=== PATIENT | female | born 1985 | race Caucasian/White ===

== ENCOUNTER 2017-10-27 10:02 | Emergency (ER) | payer OTHER ==
[~2017-10-27] VITALS: Ht 175.3 cm; Wt 144.2 kg
--- NOTE | 2017-10-27 10:14 | PHYS DOC ---
Adult General Chief Complaint Chief Complaint: SORE THROAT HPI HPI 32-year-old female patient with history of smoking complaining of sore throat for the last 2 days as a moderate pain that getting worse with swallowing. Patient denies fever and chills, nasal congestion, cough and earache, sick contact, history of frequent sore throat. Patient has history of tonsillectomy. Review of Systems Review of Systems Constitutional: Denies fever or chills [] Eyes: Denies change in visual acuity, redness, or eye pain [] HENT: Denies nasal congestion, reports sore throat Respiratory: Denies cough or shortness of breath [] Cardiovascular: No additional information not addressed in HPI [] GI: Denies abdominal pain, nausea, vomiting, bloody stools or diarrhea [] : Denies dysuria or hematuria [] Musculoskeletal: Denies back pain or joint pain [] Integument: Denies rash or skin lesions [] Neurologic: Denies headache, focal weakness or sensory changes [] Endocrine: Denies polyuria or polydipsia [] All other systems were reviewed and found to be within normal limits, except as documented in this note. Physical Exam Physical Exam Constitutional: Well developed, well nourished, mild distress, non-toxic appearance. [] HENT: Normocephalic, atraumatic, bilateral external ears normal, oropharynx moist with mild erythema, no oral exudates, nose normal. [] Eyes: PERRLA, EOMI, conjunctiva normal, no discharge. [] Neck: Normal range of motion, no tenderness, supple, no stridor. [] Cardiovascular:Heart rate regular rhythm, no murmur [] Lungs & Thorax: Bilateral breath sounds clear to auscultation [] Neurologic: Alert and oriented X 3, normal motor function, normal sensory function, no focal deficits noted. [] Psychologic: Affect normal, judgement normal, mood normal. [] EKG EKG [] Radiology/Procedures Radiology/Procedures [] Course & Med Decision Making Course & Med Decision Making Pertinent Labs reviewed. (See chart for details) strep test was negative. discharge: I've spoken with the patient and/or caregivers. I've explained the patient's condition, diagnosis and treatment plan based on information available to me at this time. I've answered the patient's and/or caregivers questions and addressed any concerns. The patient and/or caregivers have a good understanding the patient's diagnosis, condition and treatment plan as can be expected at this point. Vital signs have been stabilized. The patient's condition is stable for discharge from the emergency department. The patient will pursue further outpatient evaluation with her primary care provider or other designated consulting physician as outlined in the discharge instructions. Patient and/or caregivers are agreeable to this plan of care and follow-up instructions have been explained in detail. The patient and/or caregivers have received these instructions in written format and expressed understanding of these discharge instructions. The patient and her caregivers are aware that if any significant change in condition or worsening of symptoms should prompt him to immediately return to this of the closest emergency department. If an emergent department is not readily available I would encourage him to call 911. [] Dragon Disclaimer Dragon Disclaimer This electronic medical record was generated, in whole or in part, using a voice recognition dictation system. Departure Departure: Impression: Primary Impression: Pharyngitis, acute Disposition: HOME, SELF-CARE (at 1040) Condition: STABLE Referrals: MICHAEL VERDIN (PCP) Patient Instructions: Sore Throat Additional Instructions: Drink plenty of liquids Follow-up with your primary care physician in 3-5 days Return to ER if not getting better Scripts Naproxen (NAPROSYN) 500 Mg Tablet 1 TAB PO BID, #14 TAB 1 Refill Prov: PAULINO HOLDEN MD 10/27/17 Azithromycin (ZITHROMAX) 250 Mg Tablet 1 PKG PO UD, #1 PKG Prov: PAULINO HOLDEN MD 10/27/17 PAULINO HOLDEN MD Oct 27, 2017 10:14
[2017-10-27] MEDS ORDERED: AZIT250T PO (10:44)
[2017-10-27] MEDS ORDERED: NAPR-683 PO (10:44)
[2017-10-27 10:48] VITALS: BP 142/73
== END 2017-10-27 10:48 | disposition home or self-care (01) ==
LOC: ER 10:02
DX: J02.9 Acute pharyngitis, unspecified (principal)
CPT/HCPCS: 87070; 87880; 99283

== ENCOUNTER → 2018-11-26 | Outpatient (CLI) | payer MEDICAID ==
[~2018-11-26] MED LIST: AZIT250T PO; NAPR-683 PO
--- NOTE | 2018-11-26 13:48 | RAD ---
LEFT BREAST SONOGRAPHY Clinical indications: Lateral left breast lump. Family history of breast cancer. FINDINGS: High-resolution sonography of the lateral one half of the left breast was performed. No focal sonographic abnormality is seen. IMPRESSION: No focal sonographic abnormality is seen to correspond to the area of the palpable lump of the lateral aspect of the left breast. Therefore, with regard to any palpable lump, follow-up should be clinical. Given the patient's age of 33 and family history of breast cancer, it is worthwhile to perform a diagnostic mammogram as well. The patient will be scheduled at a later time. BI-RADS Category 0 A, inconclusive. Further imaging is needed. Electronically signed by: Kenny Briscoe MD (11/26/2018 1:45 PM) [facility]
== END | disposition home or self-care (01) ==
LOC: US 12:49
PROVIDERS: ATTEND Physician Assistant Medical
DX: N63.20 Unspecified lump in the left breast, unspecified quadrant (principal); Z80.3 Family history of malignant neoplasm of breast
CPT/HCPCS: 76641

== ENCOUNTER → 2018-12-01 | Outpatient (CLI) | payer MEDICAID ==
--- NOTE | 2018-12-01 13:38 | RAD ---
DATE: 12/01/2018 EXAM: MAMMO ISAAC DIAG BILAT HISTORY: Left upper outer breast palpable lump. No suspicious finding on ultrasound. COMPARISON: Left breast ultrasound 11/26/2018 This study was interpreted with the benefit of Computerized Aided Detection (CAD). Breast Density: FATTY The breast parenchyma is primarily fatty replaced. Breast parenchyma level density A. FINDINGS: Benign-appearing right axillary lymph node is present. No suspicious calcification cluster, dominant mass, or distortion. Marker was placed at the left upper outer breast. This region is in particular unremarkable. IMPRESSION: No suspicious finding. BI-RADS CATEGORY: 2 BENIGN FINDING(S) RECOMMENDED FOLLOW-UP: CLIN FOLLOW UP IMAGING CLINICALLY INDICATED PQRS compliance statement: Patient information was entered into a reminder system with a target due date based on clinical assessment for the next mammogram. Mammography is a sensitive method for finding small breast cancers, but it does not detect them all and is not a substitute for careful clinical examination. A negative mammogram does not negate a clinically suspicious finding and should not result in delay in biopsying a clinically suspicious abnormality. "Our facility is accredited by the [employer] Mammography Program."
== END | disposition home or self-care (01) ==
LOC: MAMMO 08:04
PROVIDERS: ATTEND Physician Assistant Medical
DX: R92.8 Other abnormal and inconclusive findings on diagnostic imaging of breast (principal)
CPT/HCPCS: 77066; G0279; 77062